=== PATIENT | female | born 1985 | race Caucasian/White ===

== ENCOUNTER 2022-10-26 14:23 | Inpatient (IN) ==
[2022-10-26] MEDS ORDERED: Buffered Lidocaine 1% SYRIN 1 ml INTRADERM ONE (14:43)
[2022-10-26] MEDS ORDERED: Promethazine INJ(RESTRICTED) 25 MG/ML 1 ml VIAL IV PRN (14:43)
[2022-10-26] MEDS ORDERED: Lactated Ringers 1000 ml BAG 1,000 ML IV ONE (14:43)
[2022-10-26] MEDS ORDERED: Nalbuphine 10 MG/ML 1 ML VIAL IV PRN (14:43)
[2022-10-26] MEDS ORDERED: Lactated Ringers 1000 ml BAG 1,000 ML IV SCH ×2 (15:00→17:00)
[2022-10-26] MEDS ORDERED: Witch Hazel PAD JAR TOPICAL PRN (16:57)
[2022-10-26] MEDS ORDERED: Glycerin ADULT 2.4 gm SUPP PR PRN (16:57)
[2022-10-26] MEDS ORDERED: Dibucaine 1% OINT 28.35 GM TUBE PR PRN (16:57)
[2022-10-27 06:43] LABS: ABS Eosinophils 0.1 10^3/uL (0.0-0.5); ABS Lymphocytes 2.2 10^3/uL (1.0-4.8); ABS Monocytes 0.8 10^3/uL (0.0-0.9); ABS Neutrophils 13.1 10^3/uL (1.5-7.6); ABS Nucleated RBC 0.01 10^3/ul; Eosinophil % 0.5 %; Hematocrit 31.4 % (35-45); Hemoglobin 10.7 g/dL (11.5-14.3); Lymphocyte % 13.6 %; Mean Corpuscular Hemoglobin 30.3 pg (27-33); Mean Corpuscular Hgb Conc 34.2 g/dL (31-36); Mean Corpuscular Volume 88.4 fL (80-97); Mean Platelet Volume 10.2 fL (7.5-11.2); Platelet Count 151 10^3/uL (150-450); Red Blood Count 3.55 10^6/uL (3.63-4.92); Red Cell Distribution Width 13.9 % (12-17); White Blood Count 16.3 10^3/uL (3.8-11.8)
[2022-10-27 16:07] VITALS: BP 92/63
== END 2022-10-27 17:35 | disposition home or self-care (01) | DRG 560 ==
LOC: MCHOBOUT 14:23 → MCHOB 14:35
PROVIDERS: ADMIT Advanced Practice Midwife; ATTEND Advanced Practice Midwife